=== PATIENT | male | born 1965 | race Caucasian/White ===

== ENCOUNTER 2020-06-12 10:49 | Outpatient (CLI) | payer OTHER, SELFPAY ==
--- NOTE | 2020-06-12 09:52 | DI.RAD_ITS ---
EXAM: XR PELVIS AP CLINICAL HISTORY: pre ARON. TECHNIQUE: 2D digital imaging was performed. COMPARISON: None FINDINGS: There is no evidence of fracture. There is advanced degenerative change in the left hip with bone-on -bone and there also osteophytes in the femoral head. Also a prominent degenerative subarticular cys t in the superior aspect of the acetabulum. No ominous osseous lesions. Opposite-right hip exhibits minimal degenerative changes. IMPRESSION: Advanced unilateral osteoarthritic degenerative changes in the left hip. DATA REPOSITORY: RADIATION DOSE DELIVERED:
== END 2020-06-12 11:09 ==
PROVIDERS: Visit Provider Student in an Organized Health Care Education/Training Program
DX: M16.12 Unilateral primary osteoarthritis, left hip (principal)
CPT/HCPCS: 72170

== ENCOUNTER 2020-07-04 13:28 | Outpatient (CLI) | payer OTHER, SELFPAY ==
--- NOTE | 2020-07-04 13:30 | DI.RAD_ITS ---
EXAM: XR PELVIS AP CLINICAL HISTORY: Preop Planning. TECHNIQUE: 2D digital imaging was performed. COMPARISON: CR XR PELVIS AP from 06/12/2020 FINDINGS: There are marked degenerative changes of the left hip characterized by joint space narrowing, subchon dral sclerosis and cysts and periarticular spurring. There are mild degenerative changes of the righ t hip, predominantly involving joint space narrowing and subchondral sclerosis. Bones are normally m ineralized. The soft tissues are unremarkable. IMPRESSION: Advanced osteoarthritis of the left hip. DATA REPOSITORY: RADIATION DOSE DELIVERED:
== END 2020-07-04 13:48 ==
PROVIDERS: Visit Provider Physician Assistant
DX: M16.12 Unilateral primary osteoarthritis, left hip (principal)
CPT/HCPCS: 72170

== ENCOUNTER 2020-07-07 00:48 | Outpatient (CLI) | payer OTHER, SELFPAY ==
[2020-07-07 09:18] LABS: HCT 45.8 % (40.0-50.0); HGB 15.8 g/dL (13.5-17.5); MCHC 34.5 % (32.0-36.0); MCV 89.8 fL (80-95); MPV 10.3 fL (8.0-11.0); Platelet Count 213 10^3/uL (130-400); RDW 11.9 % (11.8-14.1); RDW-SD 38.9 fL; WBC 6.49 10^3/uL (4.4-10.8)
[2020-07-07 10:29] LABS: Anion Gap 6.8 mmol/L (3-11); BUN 17 mg/dL (7-18); CO2 29.2 mmol/L (21.0-32.0); CREATININE 0.97 mg/dL (0.70-1.30); Calcium 8.9 mg/dL (8.5-10.1); Chloride 103 mmol/L (98-107); Glucose 94 mg/dL (74-106); Potassium 4.5 mmol/L (3.5-5.1); Sodium 139 mmol/L (136-145)
== END 2020-07-07 01:08 ==
PROVIDERS: Visit Provider Student in an Organized Health Care Education/Training Program
DX: M25.552 Pain in left hip (principal); M16.12 Unilateral primary osteoarthritis, left hip; Z01.818 Encounter for other preprocedural examination; Z01.812 Encounter for preprocedural laboratory examination
CPT/HCPCS: 36415; 80048; 85027; 86850; 86900; 86901

== ENCOUNTER 2020-07-07 02:20 | Outpatient (CLI) | payer OTHER, SELFPAY ==
[2020-07-08 16:58] LABS: COVID-19 RT-PCR Result NEGATIVE (Negative)
== END 2020-07-07 02:40 ==
PROVIDERS: Visit Provider Student in an Organized Health Care Education/Training Program
DX: Z20.828 Contact with and (suspected) exposure to other viral communicable diseases (principal); Z01.818 Encounter for other preprocedural examination
CPT/HCPCS: U0003

== ENCOUNTER 2020-07-11 06:58 | Day surgery (SDC) | payer OTHER, SELFPAY ==
[2020-07-11] VITALS (13 sets, daily range): BP systolic 80–146; BP diastolic 49–89; PULSE 43–60; RESP 12–18; TEMP 35.9–36.5; O2SAT 94–99
[2020-07-11] MEDS: Acetaminophen 500 MG TAB 1000 MG PO ×2 (07:28→15:35)
[2020-07-11] MEDS: Celecoxib 200 MG CAP 400 MG PO (07:28)
--- NOTE | 2020-07-11 07:38 | W.PM.DSUDISC ---
Documented by User: DAVIDSON Marcelo 07/11/20 07:48 Discharge Plan Disposition Patient Disposition: HOME Condition: Good Discharge Details Reason For Visit: Left Hip DJD Attending Provider: Omar Marie Primary Care Provider: Osvaldo Dinh Home Meds and New Rx's Prescriptions: New acetaminophen 500 mg capsule 1,000 mg PO Q8H PRN PRNQty: 90 RF: 0 celecoxib 200 mg capsule 200 mg PO BID Qty: 60 RF: 0 aspirin 81 mg tablet,delayed release (DR/EC) 81 mg PO BID Qty: 60 RF: 0 pantoprazole 40 mg tablet,delayed release (DR/EC) 40 mg PO DAILY Qty: 30 RF: 0 oxycodone 5 mg tablet 5 mg PO Q8H MDD 15mg PRN (Reason: pain) Qty: 10 RF: 0 Continued lisinopril 20 mg tablet 20 mg PO DAILY RF: 0 Discharge Instructions Additional Instructions: Total Hip Discharge Instructions Activity: The most important activity is to walk. You should try to take short walks a few times a day. You have no restrictions on movement or positioning, but do not try to force what you do. You will find some stiffness and weakness with hip flexion (lifting your knee). Do not try to strengthen this too early, continue to practice walking and stairs and this will come. - Outpatient physical therapy can be helpful to help return you to a normal gait and improve your flexibility and strength. This can start around 2 weeks. For some patients, it?s not necessary. Usually this is determined at the time of discharge or at the first post-operative visit. - You should wear the PA hose on both legs for 2 weeks. Dressing: Keep the surgical dressing in place for at least one week. After the first week it may be removed and replace with light gauze and tape or nothing. It may get wet after 3 days but avoid soaking the dressing. If it gets wet, just lightly pat dry. It is important to always keep some gauze between skin folds, especially when you are sitting. Spend some time with the wound exposed when you are lying flat as the incision does wrinkle onto itself. Medications: - You should take Tylenol and an anti-inflammatory Celebrex as your primary pain control medications. If the Celebrex is too expensive or not covered, please call the office for another alternative (Advil/Ibuprofen or Naproxen/Aleve). - You have been prescribed a stronger pain medication Oxycodone for breakthrough pain, take as needed as prescribed. - You have also been prescribed a stomach acid reduction agent Pantoprozole to help reduce stomach acid and reflux. - You will be taking Aspirin 81mg twice a day for DVT prevention unless instructed otherwise. - If you have constipation you should take Colace or Miralax (both [id number]). It takes most people 3-4 days to have a bowel movement. Follow-up: 2 weeks If you have any acute concerns or questions, please do not hesitate to contact the office at [phone]. You may contact Dr. Marie with any questions after hours through the hospital at [phone] or on his cell phone at [phone]. Referrals: Omar Marie MD [ [facility] STAFF PHYSICIAN] - Equipment/Supplies: Walker Activity:: Activity as Tolerated Remove Dressings/Wound Care:: Do Not Remove Shower/Bathe:: Cover Diet:: As Tolerated Discharge Orders Discharge Orders: Discharge Order (Routine); Ordered 07/11/20 Ordered By: Emir Echeverria DS: Diagnosis Discharge Diagnosis (1) Arthritis of left hip: Status: Acute Documented by User: Omar Marie MD 07/11/20 14:02 Discharge Plan Disposition Patient Disposition: HOME Condition: Good Discharge Details Reason For Visit: Left Hip DJD Attending Provider: Omar Marie Primary Care Provider: Osvaldo Dinh Home Meds and New Rx's Prescriptions: New acetaminophen 500 mg capsule 1,000 mg PO Q8H PRN PRNQty: 90 RF: 0 celecoxib 200 mg capsule 200 mg PO BID Qty: 60 RF: 0 aspirin 81 mg tablet,delayed release (DR/EC) 81 mg PO BID Qty: 60 RF: 0 pantoprazole 40 mg tablet,delayed release (DR/EC) 40 mg PO DAILY Qty: 30 RF: 0 oxycodone 5 mg tablet 5 mg PO Q8H MDD 15mg PRN (Reason: pain) Qty: 10 RF: 0 Continued lisinopril 20 mg tablet 20 mg PO DAILY RF: 0 Discharge Instructions Additional Instructions: Total Hip Discharge Instructions Activity: The most important activity is to walk. You should try to take short walks a few times a day. You have no restrictions on movement or positioning, but do not try to force what you do. You will find some stiffness and weakness with hip flexion (lifting your knee). Do not try to strengthen this too early, continue to practice walking and stairs and this will come. - Outpatient physical therapy can be helpful to help return you to a normal gait and improve your flexibility and strength. This can start around 2 weeks. For some patients, it?s not necessary. Usually this is determined at the time of discharge or at the first post-operative visit. - You should wear the PA hose on both legs for 2 weeks. Dressing: Keep the surgical dressing in place for at least one week. After the first week it may be removed and replace with light gauze and tape or nothing. It may get wet after 3 days but avoid soaking the dressing. If it gets wet, just lightly pat dry. It is important to always keep some gauze between skin folds, especially when you are sitting. Spend some time with the wound exposed when you are lying flat as the incision does wrinkle onto itself. Medications: - You should take Tylenol and an anti-inflammatory Celebrex as your primary pain control medications. If the Celebrex is too expensive or not covered, please call the office for another alternative (Advil/Ibuprofen or Naproxen/Aleve). - You have been prescribed a stronger pain medication Oxycodone for breakthrough pain, take as needed as prescribed. - You have also been prescribed a stomach acid reduction agent Pantoprozole to help reduce stomach acid and reflux. - You will be taking Aspirin 81mg twice a day for DVT prevention unless instructed otherwise. - If you have constipation you should take Colace or Miralax (both [id number]). It takes most people 3-4 days to have a bowel movement. Follow-up: 2 weeks If you have any acute concerns or questions, please do not hesitate to contact the office at [phone]. You may contact Dr. Marie with any questions after hours through the hospital at [phone] or on his cell phone at [phone]. Referrals: Omar Marie MD [ [facility] STAFF PHYSICIAN] - Equipment/Supplies: Walker Activity:: Activity as Tolerated Remove Dressings/Wound Care:: Do Not Remove Shower/Bathe:: Cover Diet:: As Tolerated Discharge Orders Discharge Orders: Discharge Order (Routine); Ordered 07/11/20 Ordered By: Emir Echeverria
[2020-07-11] MEDS: Lactated Ringers 1,000 ML 30 ML IV (07:55)
[2020-07-11] MEDS: ceFAZolin 2 GM/50 ML BAG IVPB (08:35)
[2020-07-11] MEDS: Bupivacaine 0.25% Pres-Free 30 ML VIAL (09:04)
[2020-07-11] MEDS: Ketorolac 30 MG/ML VIAL (09:06)
--- NOTE | 2020-07-11 10:00 | DI.RAD_ITS ---
EXAM: XR HIP LT IN OR CLINICAL HISTORY: total hip. TECHNIQUE: 2D and realtime digital imaging was performed. COMPARISON: CR XR PELVIS AP from 07/04/2020 FINDINGS: Fluoroscopy was provided for Dr. Marie in the OR. Hard copy images show placement of a left hip p rosthesis which appears satisfactorily aligned. Please see procedure note for details. RADIATION DOSE DELIVERED:
[2020-07-11] MEDS: fentaNYL 100 MCG/2 ML VIAL IVP (10:20)
--- NOTE | 2020-07-11 10:20 | DI.RAD_ITS ---
EXAM: XR PELVIS AP INDICATION: s/p L ARON. COMPARISON: CR XR PELVIS AP from 07/04/2020 CR XR PELVIS AP from 07/04/2020 RF XR HIP LT IN OR from 07/11/2020 TECHNIQUE: 2D digital imaging was performed. FINDINGS: A left hip prosthesis is noted. Alignment appears unchanged from intraoperative images. A large sub chondral cyst is again noted in the left superior acetabulum. There are mild degenerative changes of the right hip. DATA REPOSITORY: RADIATION DOSE DELIVERED:
--- NOTE | 2020-07-11 10:59 | ROE_ITS ---
Date of service: 07/11/20 Time of Service: 10:00 Operative Note Operative Note DATE OF PROCEDURE: 07/11/20 PRE-OP DIAGNOSIS: Left Hip Osteoarthritis POST-OP DIAGNOSIS: same PROCEDURE: Left Anterior Total Hip Arthroplasty SURGEON: Omar Marie STEEL SPAR OPERATOR: Emir Echeverria ANESTHESIA: spinal ESTIMATED BLOOD LOSS: 350 PATHOLOGY: none sent COMPLICATIONS: None Patient was transported to: PACU Patient's condition: stable Implants: 1. Depuy [place] Acetabular Component, 56mm 2. Depuy Acetabular Liner, [id number] 3. Depuy Corail High Offset Femoral Stem, Size 13 4. Depuy Altrx Ceramic Femoral Head, Size 36+5mm Indications: I have seen Carlos in clinic for symptoms of hip arthritis, confirmed with radiographic findings. Carlos has exhausted nonoperative methods and was having significant limitations in daily function and desired better function and less pain. I discussed the technical details of a hip replacement. I explained the risks of the procedure to include, but not limited to, bleeding, infection, pain, stiffness, fracture, damage to nerves and vessels, damage to muscles and tendons, loosening, instability, leg length inequality, need for repeat procedure, blood clot and cardiopulmonary demise. Despite these risks, he elected to proceed. Findings: There was significant signs of arthritis throughout the hip. There were large osteophytes throughout the femoral head and neck. Procedure Description: Carlos was greeted in the preoperative holding area where the correct side was identified and marked. The consent was reviewed with the patient and signed. The history and physical was updated. All questions were answered. Carlos was taken back to the operating room. A spinal anesthestic was then administered. The feet were wrapped with cast padding and Coban and then placed into the boot liners and then into the boots. Care was taken to protect the skin and make sure the heels were fully down and the boots were stable. The patient was then positioned onto the HANA table. Both legs were held in a neutral position. SCDs were applied. The patient was then slid down onto a peroneal post. A preoperative AP pelvis was obtained to serve as a reference for determining leg lengths. Prophylactic antibiotics in the form of Cefazolin were administered. 1g of Tranxemic Acid was given intravenously within 30 minutes of incision. The left leg was then prepped with Chloraprep and draped in a standard fashion. A second prep with Chloraprep was performed prior to placement of a shower-curtain type drape with Iodine impregnated skin protection. A timeout to confirm correct identity, side and site, procedure, allergies, anesthesia, and medical concerns was performed. An obliquely oriented incision was made starting lateral to the ASIS and running distal over the Tensor Fascia Moon (TFL) muscle belly toward the fibular head, approximately 10cm. The skin and soft tissue was dissected sharply, through Alphonse?s fascia, and to the fascia of the TFL. With the fascia and superior border of the IT band identified, the fascia was incised with a new knife just above any perforators from the IT band. The TFL muscle belly was bluntly dissected away from the fascia and moved laterally. The fat between TFL and rectus was identified to ensure the dissection was not within the TFL. Blunt dissection created space between abductors and the capsule and retractor was placed over the lateral femoral neck. The fibers of the rectus femoris tendon were identified and these were freed from the anterior capsule. A second cobra retractor was placed around the medial femoral neck. The TFL was further retracted laterally to show the deep fascia. Careful dissection through this layer identified three main crossing vessels of the lateral femoral circumflex. These were cauterized in multiple locations and then cut without any noticeable bleeding. The TFL was further released bluntly from the deep fascia to expose anterior hip capsule and fat The [place] orthopaedic retractor was then placed beneath the TFL and against sartorius and medial soft tissues to protect and retract the soft tissues. A T-capsulotomy was then performed starting at the superior lateral acetabulum and moving distally to the intertrochanteric ridge. These capsular flaps were tagged with a No. 1 Ethibond and elevated from within. The capsular flaps were released to the shoulder of the lateral neck and to the lesser trochanter to give excellent visualization of the proximal femur. A neck osteotomy was performed using an oscillating saw based on preoperative templates. This cut started in the shoulder and of the lateral neck and exited medially. The saw was at all times directed medially to avoid injury to the greater trochanter. 6cm of traction was applied to the leg and the osteotomy opened. The femoral head was removed with a corkscrew, making sure to protect the TFL on its exit. Traction was released after head removal. This was measured on the back table to determine the starting reamer size. Portions of the rectus obscuring visualization were minimally elevated off the superior acetabulum. An anterior retractor was placed over the anterior wall between ca psule and labrum and attached to the Gripper retraction system. The femur was rotated to 90 degrees and medial capsule was fully released until the lesser trochanter was palpable and visible; the femur was returned to 30 degrees. A posterior retractor was placed similarly between capsule and labrum. This provided excellent visualization. The contents of the cotyloid fossa were removed with electrocautery and the labrum was removed with a knife. There was a notable floor osteophyte. There was significant chondromalacia of the superior acetabulum. Acetabular reaming began with a 52mm reamer. This first reaming was directed anterior to posterior and medial to get down to the true floor. This was inspected and reamed until the true floor was reached. The anterior retractor was then released and entry and exit was provided by traction on the capsular flaps. I then reamed sequentially up to a 56mm reamer where good fit was obtained. The larger reamers were oriented based on anatomical reference of the anterior and lateral moon to ensure proper abduction and anteversion. Positioning and size was confirmed with the fluoroscopy. A 56mm Depuy [place] acetabular component was selected. The acetabulum was reamed around the periphery with the selected acetabular size to prevent a rim fit. The deep tissues were irrigated. The acetabular cyst which was seen preoperatively was evident. I used a pituitary rongeur and curette to remove the contents of the cyst and then packed the cyst with bone from the femoral head prior to placing the acetabular component. The acetabular component was then impacted in a position of about 40-45 degrees of abduction and 15-20 degrees of anteversion, using the patient?s anatomy as the ultimate landmark. Fluoroscopy was used to confirm this. There was excellent senior sustainability consultant of the acetabular component and the inserting handle was removed. The acetabular liner, Depuy [id number] polyethylene liner, was inserted and lined up with the tines of the acetabular component. There was no soft tissue interposition. The liner was then impacted into position and confirmed to be well-seated. A portion of the raji-articular cocktail was then injected around the acetabulum into the capsule and periosteum. This cocktail consisted of 50cc of 0.25% Bupivicaine and 20cc of Exparel and 30mg of Ketorolac. The leg was rotated to 120 degrees. Any remaining medial capsule was released until the lesser trochanter was easily palpable. A retractor was placed medially. The lateral capsule was further released into the shoulder to allow access to the greater trochanter. A Alatorre retractor was placed over the greater trochanter which allowed the trochanter to flip in front of the capsule for excellent exposure. The leg was brought down into maximal extension and 20 degrees of adduction while ensuring there was no impingement on the acetabulum. Any remnant capsule within the trochanter was released. Piriformis and obturator externis were identified and protected. There was excellent access to the proximal femur. The lateral neck remnant was removed with a rongeur. A blunt canal probe was used to identify the canal and trajectory for later broaching. A box osteotome initiated the broach course. A small curved rasp and a curved curette were used to work laterally. Broaching then began with a size 8 Corail broach. This was inserted manually around the trochanter and into the canal before mallet blows. The broach was seated to a few millimeters below the cut level based on the neck cut and the preoperative template. Sequential broaching was continued with the [employer] pneumatic broaching device until a tight fit was obtained with good rotational control of the femur. A trial high offset neck was inserted along with a +5 trial head. The leg was brought out of extension and adduction and then reduced with traction and internal rotation. The leg was stable anteriorly in a position of 30 degrees of extension and 90 degrees of external rotation. Fluoroscopy was used to ensure there was no fracture and the stem was seated well. Leg lengths were checked with an AP pelvis and pelvic reference points. [employer] navigation system was used to confirm appropriate positioning and leg length and offset. Once content with the desired offset and leg lengths, the leg was brought back into extension, external rotation and adduction. The periosteum and surrounding tissue was injected with remaining portion of the raji-articular cocktail. The proximal femur was irrigated as well as the deep tissues. The Depuy Corail high offset stem, size 13, was then manually inserted into the proximal femur making sure to control rotation. It was then malleted into position with light blows, giving breaks to allow bone expansion and decrease risk of fracture. The selected Depuy Altrx Ceramic Head, size 36+5mm, was then placed onto the clean and dry trunnion and secured with impaction onto the tapered fit. The leg was brought back out of extension and adduction and reduced with traction and internal rotation. Stability was confirmed with no shuck at 90 degrees of external rotation and 30 degrees of extension. No impingement through range of motion arc. Final x-ray images were obtained with fluoroscopy to confirm adequate positioning and no intraoperative fracture. The deep tissues were thoroughly irrigated with Irrisept chlorhexadine solution. The second dose of TXA 1g was administered intravenously.The capsule was then reapproximated with the previously placed Ethibond sutures. The TFL fascia was finally closed with a No. 2 Stratafix, barbed suture. Deep tissues were then reapproximated with 0 Vicryl and a running 2-0 Vicryl. The skin was closed with a running 4-0 Monocryl in a subcuticular fashion. This was reinforced with skin glue. A Mepilex silver dressing was applied. At the end of the case, all counts were correct. Ray was transferred to the hospital bed without difficulty and suffering no apparent complication. Ray has a good prognosis. Physical therapy will start today and without restrictions, weight-bearing as tolerated. Aspirin 81mg BID will be used for DVT prophylaxis.
[2020-07-11] MEDS: oxyCODONE 5 MG TAB PO ×2 (11:51→15:35)
--- NOTE | 2020-07-11 12:45 | IN_ITS ---
Date of service: 07/11/20 Time of Service: 12:45 PT Notes Visit Reasons: Left Hip DJD Physical Therapy Day Surgery Initial Evaluation Date: 07/11/2020 Referring Doctor: DAVIDSON Marcelo PT Orders: PT CONSULT: Urgent. Eval/treat. Precautions: WBAT on left LE. Patient Profile/Admitting Diagnosis: Abdirahman is a 54-year-old male with primary unilateral osteoarthritis of the left hip and is status post right total hip arthroplasty on postoperative day 0. PMHX: Medical History (Updated 06/12/20 @ 12:39 by Omar Marie MD) Hypertension Social History/Home Situation: Lives with and 12-year-old son in a private home with 1 step that leads onto a deck and another 3 steps to the house entrance with a rail on 1 side. 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 Equipment Owned/DME: Front wheeled walker, lateral axillary crutches Subjective: Agreeable to PT consult. Reports aching pain in the left quadriceps muscle proximal to the left knee. Indicates that this area has been giving him much difficulty even before surgery. Reports feeling weird and being off balance due to persistent numbness from his buttocks down to his posterior thighs and soles of his feet. Reports 2/10 pain in the left hip and distal thigh. Objective: General Observation: Supine in stretcher. Mepilex Ag over surgical incision. Bilateral TDS. IV access in left UE. Cold pack on left LE. Mental Status: Alert and oriented x4 Pain: 2/10 in the left hip and distal thigh ROM: Right Upper Extremity: Shoulder Flexion WFL. Shoulder abduction WFL. Elbow flexion WFL. Wrist flexion WFL. Functional opening and closing of hand WFL. Left Upper Extremity: Shoulder Flexion WFL. Shoulder abduction WFL. Elbow flexion WFL. Wrist flexion WFL. Functional opening and closing of hand WFL. Right Lower Extremity: Hip flexion WFL. Hip abduction WFL. Knee flexion WFL. Ankle dorsiflexion WFL. Ankle plantarflexion WFL. Left Lower Extremity: Hip flexion WFL. Hip abduction WFL. Knee flexion WFL. Ankle dorsiflexion WFL. Ankle plantarflexion WFL. Strength: Right Upper Extremity: Shoulder flexors 5/5. Shoulder abductors 5/5. Elbow flexors 5/5. Elbow extensors 5/5. [employer] strong. Left Upper Extremity: Shoulder flexors 5/5. Shoulder abductors 5/5. Elbow flexors 5/5. Elbow extensors 5/5. [employer]ental Representative strong. Right Lower Extremity: Hip flexors 5/5. Hip abductors 5/5. Knee flexors 5/5. Knee extensors 5/5. Ankle dorsiflexors 5/5. Ankle plantarflexors 5/5. Left Lower Extremity:Hip flexors 4/5. Hip abductors 4/5. Knee flexors 5/5. Knee extensors 4/5. Ankle dorsiflexors 5/5. Ankle plantarflexors 5/5. Sensation: Reports numbness from bilateral gluteal area down to posterior thighs and legs up to both soles of feet. Bed Mobility/Transfers: Rolling independent Supine to sit independent Sit to stand contact-guard assist Stand to sit contact-guard assist Bed to chair contact-guard assist Chair to bed contact-guard assist Gait: Guided patient through short distance ambulation of 10 to 12 feet from bedside to bedside recliner using front-wheeled walker with step-to gait pattern with complaints of lack of full control of B LE and mild lightheadedness. Patient was then slowly supported through 100 feet of level surface ambulation but requested to sit down due to increasing complaint of numbness and having a sense of imbalance. Nurse Pebbles assisting and closely monitoring vital signs with a blood pressure softening down to the 90s systolically and low 50s diastolically x 2. After resting about 10 minutes patient then tolerated another 100 feet in the day surgery hallway using front wheeled walker and after a quick rest was able to negotiate up and down 6 x 4 inch steps using bilateral axillary crutches using step to gait pattern with while holding onto 1 rail and single-point cane with minimal assist and minimal verbal cues for correct technique with much improved sensation in BLE and no increase in pain complaint. Nurses Pebbles and Natacha assisting for safety. Balance: Static Sitting: Normal Dynamic Sitting: Normal Static Standing: Fair Dynamic Standing: Fair Special Tests: Mobility Limitations Standardized [employer] AM-PAC 6 clicks Basic Mobility Inpatient Short Form: Raw Score: 18 CMS Score: 47% deficit Informed Consent/Education: Patient instructed in purpose of PT consult. Packet containing ARON exercise protocol has been given to patient. Education and training on initial set of exercises that can be done at home have been completed with patient. Assessment: Abdirahman demonstrates the need for a front wheeled walker for all mobility ADL performance in order to maximize safety and reduce fall risk at home. His performance earlier was limited by blood pressure changes as well as numbness and bilateral lower extremities. He will have the support of his as he recovers at home. Patient presents with clinical signs and symptoms consistent with current/admitting diagnoses that have resulted to mobility limitations, gait instability, generalized weakness, and impairment of motor control as demonstrated by the following impairment level findings: 1. Decreased strength to left hip major muscle groups 2. Impaired standing balance 3. Limitation of joint range of motion in left knee 4. Continued numbness in bilateral lower extremities 5. Early hypotensive episode Impairments are contributing to the following functional limitations: 1. Inability to safely ambulate without assistive device 2. Increase completion time for mobility ADL performance 3. Increased fall risk Patient is assessed as a [id number] moderate complexity based on the following: History: 54-year-old male with impairment level findings, functional limitations, and past medical history as indicated above Examination: Demonstrable impairment in strength, balance, and mobility level with underlying impairments and functional limitations as documented above Presentation: Evolving Decision Makin moderate Goals: N/A. PT evaluation and 1-2 treatment sessions only for functional mobility training using recommended AD and for HEP instruction. Plan of Care/Treatment Plan: N/A. PT evaluation and 1-2 treatment session only for functional mobility training using recommended AD and for HEP instruction. DISCHARGE RECOMMENDATIONS: Home when medically cleared by orthopedic surgeon. May benefit from outpatient physical therapy services to facilitate independent community ambulation and full return to vocational activities. TREATMENT CODE/TIME: 68096 x 30 minutes, 9753 0x 55 minutes beginning at 12:45 PM. Thank you for the opportunity to participate in the care of this patient. Yadi Calloway PT, DPT, CLT [facility] [place], [place]
== END 2020-07-11 16:20 | disposition home or self-care (01) ==
PROVIDERS: PCP Family Medicine; Visit Provider Student in an Organized Health Care Education/Training Program
PROC: (CPT 27130; principal; 2020-07-11 08:45)
DX: M16.12 Unilateral primary osteoarthritis, left hip (principal); Z96.642 Presence of left artificial hip joint; I10 Essential (primary) hypertension
CPT/HCPCS: 27130; 20985; C1776; 97162; 97530; 72170; 73501; J0690; J1885; J2250; J2405; J2704; J3010

== ENCOUNTER 2020-07-24 15:17 | Outpatient (CLI) | payer OTHER, SELFPAY ==
--- NOTE | 2020-07-24 14:00 | DI.RAD_ITS ---
EXAM: XR HIP LT COMPLETE AP PELVIS CLINICAL HISTORY: 1st post op L ARON. TECHNIQUE: 2D digital imaging was performed. COMPARISON: CR XR PELVIS AP from 07/11/2020 FINDINGS: BONES: There are stable post operative changes present. No fracture or dislocation. JOINTS: The joint spaces are well maintained. No joint effusion is present. There is a stable large subchondral cyst in the left acetabulum. Stable mild degenerative changes are seen in the right hip. SOFT TISSUE: Normal. IMPRESSION: Stable postoperative changes. DATA REPOSITORY: RADIATION DOSE DELIVERED:
== END 2020-07-24 15:18 | disposition home or self-care (01) ==
LOC: DIORS 15:18
PROVIDERS: PCP Family Medicine; Referring Provider Family Medicine; Visit Provider Physician Assistant
DX: Z96.642 Presence of left artificial hip joint (principal); M16.11 Unilateral primary osteoarthritis, right hip
CPT/HCPCS: 73502

== ENCOUNTER 2021-07-17 08:38 | Outpatient (CLI) | payer OTHER, SELFPAY ==
--- NOTE | 2021-07-17 08:00 | DI.RAD_ITS ---
Exam(s) XR HIP LT AP LAT ONLY EXAM: XR HIP LT AP LAT ONLY CLINICAL HISTORY: annual f/u L ARON. TECHNIQUE: 2D digital imaging was performed. COMPARISON: CR XR HIP LT COMPLETE AP PELVIS from 07/24/2020 FINDINGS: BONES: There are stable post operative changes present. No findings to suggest infection or loosenin g. No fracture or dislocation. JOINTS: Mild degenerative changes are seen in the right hip. No joint effusion is present. SOFT TISSUE: Normal. IMPRESSION: Stable postoperative changes. DATA REPOSITORY: RADIATION DOSE DELIVERED:
== END 2021-07-17 08:39 | disposition home or self-care (01) ==
LOC: DIORS 08:38
PROVIDERS: PCP Family Medicine; Referring Provider Family Medicine; Visit Provider Student in an Organized Health Care Education/Training Program
DX: Z96.642 Presence of left artificial hip joint (principal); Z47.1 Aftercare following joint replacement surgery
CPT/HCPCS: 73502